=== PATIENT | male | born 1960 | race Two or more races ===

== ENCOUNTER 2023-08-15 13:51 | Emergency (ER) | payer MEDICAID ==
[~2023-08-15] VITALS: Ht 188 cm; Wt 75.3 kg
[2023-08-15] MEDS ORDERED: TETANUS-DIPTH-ACEL PERTUSSIS 0.5ML SYR Tdap IM ONE (16:00)
[2023-08-15] MEDS ORDERED: NAPR-746 PO (16:01)
[2023-08-15] MEDS ORDERED: AMOX500T86 PO (16:01)
[2023-08-15 16:19] VITALS: BP 195/92; PULSE 81; RESP 16; TEMP 97.8; O2SAT 98
== END 2023-08-15 16:23 | disposition home or self-care (01) ==
LOC: ER 13:51
DX: S61.411A Laceration without foreign body of right hand, initial encounter (principal); S61.511A Laceration without foreign body of right wrist, initial encounter; S61.012A Laceration without foreign body of left thumb without damage to nail, initial encounter; S61.452A Open bite of left hand, initial encounter; S61.451A Open bite of right hand, initial encounter; Z79.2 Long term (current) use of antibiotics; Z79.899 Other long term (current) drug therapy; W54.0XXA Bitten by dog, initial encounter; Y93.89 Activity, other specified; Y92.89 Other specified places as the place of occurrence of the external cause; Y99.8 Other external cause status
CPT/HCPCS: 12004; 90471; 90715; 99283; J2001

== ENCOUNTER 2023-08-26 14:58 | Emergency (ER) | payer MEDICAID ==
[~2023-08-26] VITALS: Ht 188 cm; Wt 76.6 kg
[~2023-08-26 14:58] MED LIST: AMOX500T86 PO; NAPR-746 PO
[2023-08-26 15:50] VITALS: BP 182/71; PULSE 71; RESP 17; TEMP 98.8; O2SAT 97
[2023-08-26] MEDS: NEOMYCIN-BACITRACIN-POLYM UNITDOSE PKG TOP OINT TOP ONE (16:21)
== END 2023-08-26 16:21 | disposition home or self-care (01) ==
LOC: ER 14:58
DX: S61.411D Laceration without foreign body of right hand, subsequent encounter (principal); X58.XXXD Exposure to other specified factors, subsequent encounter
CPT/HCPCS: 29125